=== PATIENT | female | born 1980 ===

== ENCOUNTER 2024-06-04 15:10 | Emergency (ER) | payer MEDICAID ==
[~2024-06-04] VITALS: Ht 160 cm; Wt 59.1 kg
[2024-06-04 15:25] VITALS: TEMP 98.3
[2024-06-04 16:18] LABS: BASOPHILS % (AUTO) 0.4 % (0.0-2.0); EOSINOPHILS % (AUTO) 0.9 % (1.0-6.0); HEMATOCRIT 39.7 % (36-46); HEMOGLOBIN 13.5 g/dL (12.0-16.0); LYMPHOCYTES # (AUTO) 2.5 K/uL (1.0-4.8); LYMPHOCYTES % (AUTO) 27.9 % (22.0-44.0); MEAN CORPUSCULAR HEMOGLOBIN 30.3 pg (26.0-34.0); MEAN CORPUSCULAR HGB CONC 34.2 G/dL (31.0-37.0); MEAN CORPUSCULAR VOLUME 89 fL (80-100); MONOCYTES # (AUTO) 0.7 K/uL (0.1-1.0); MONOCYTES % (AUTO) 7.9 % (2.0-9.0); NEUTROPHILS # (AUTO) 5.6 K/uL (1.8-7.7); NEUTROPHILS % (AUTO) 62.9 % (40.0-70.0); PLATELET COUNT (AUTO) 357 K/uL (150-450); RED BLOOD CELL COUNT(AUTO) 4.46 MIL/uL (4.00-5.20); RED CELL DISTRIBUTION WIDTH 12.9 % (11.5-14.5); WHITE BLOOD COUNT (AUTO) 8.9 K/uL (4.5-11.0)
[2024-06-04 16:27] LABS: CALCIUM, TOTAL 8.7 mg/dL (8.8-10.5); POTASSIUM 4.5 mmol/L (3.5-5.1)
[2024-06-04 16:37] LABS: TROPONIN I-HIGH SENSITIVITY 11 ng/L (<51)
[2024-06-04] MEDS: LORazepam 1 MG TABLET PO ONE (17:27)
[2024-06-04 17:31] VITALS: BP 140/70; PULSE 78; RESP 16; O2SAT 100
== END 2024-06-04 18:15 | disposition home or self-care (01) ==
LOC: EMS 15:10
DX: R00.2 Palpitations (principal); G25.2 Other specified forms of tremor; F41.9 Anxiety disorder, unspecified; M79.7 Fibromyalgia; Z88.0 Allergy status to penicillin; Z91.018 Allergy to other foods
CPT/HCPCS: 80048; 84484; 84703; 85025; 93005; 99284